=== PATIENT | female | born 1960 | race Caucasian/White ===

== ENCOUNTER 2020-01-31 13:13 | Emergency (ER) | payer OTHER ==
[~2020-01-31] VITALS: Ht 167.6 cm; Wt 95.3 kg
--- NOTE | 2020-01-31 13:27 | NUR ---
CAME IN FOR GROIN AREA AND LLE PAIN ON AND OFF FOR FEW DAYS. TO ER BED 11, HOOKED TO MONITOR, CHANGED TO HOSP GOWN, WARM BLANKET PROVIDED, AWAITING MD FUENTES.
--- NOTE | 2020-01-31 14:15 | NUR ---
DR ANDRES AT BEDSIDE
[2020-01-31] MEDS ORDERED: HYDROCODONE/APAP 5/325MG 1 EACH TABLET PO ONE (14:30)
[2020-01-31] MEDS ORDERED: KETOROLAC TROMETHAMINE INJ 60 MG/2 ML VIAL IM ONE (14:30)
--- NOTE | 2020-01-31 14:48 | NUR ---
US TECH AT BEDSIDE
[2020-01-31] MEDS ORDERED: HYDROCODONE/APAP 5/325MG 1 EACH TABLET ONE (14:49)
[2020-01-31] MEDS ORDERED: KETOROLAC TROMETHAMINE INJ 30 MG/ML VIAL ONE (14:49)
--- NOTE | 2020-01-31 14:55 | NUR ---
NEGATIVE FOR DVT AT L LEG. DR ANDRES AWARE
--- NOTE | 2020-01-31 15:32 | NUR ---
RECEIVED VERBAL ORDER FROM DR ANDRES FOR MORPHINE 4MG IM AND ZOFRAN 4MG SL. CARRIED OUT
[2020-01-31] MEDS ORDERED: MORPHINE SULFATE INJ 4 MG/ML DISP.SYRIN ONE (15:33)
[2020-01-31] MEDS ORDERED: ONDANSETRON 4 MG TAB.RAPDIS ONE (15:33)
[2020-01-31] MEDS ORDERED: MORPHINE SULFATE INJ 2 MG/ML DISP.SYRIN IM ONE (16:00)
[2020-01-31] MEDS ORDERED: ONDANSETRON 4 MG TAB.RAPDIS SL ONE (16:00)
--- NOTE | 2020-01-31 17:26 | NUR ---
Patient discharged to home in stable condition. Assisted to waiting room to be picked up by daughter. Written and verbal after care instructions given. Patient verbalizes understanding of instruction.
[2020-01-31 17:28] VITALS: BP 149/98
== END 2020-01-31 17:33 | disposition home or self-care (01) ==
LOC: ER 13:16
DX: M54.32 Sciatica, left side (principal); M79.605 Pain in left leg
CPT/HCPCS: 93971; 96372 ×2; 99284; J1885; J2270; Q0162